=== PATIENT | male | born 1970 ===

== ENCOUNTER 2017-03-11 15:00 | Emergency (ER) | payer OTHER ==
[2017-03-11 15:27] VITALS: PULSE 72; RESP 18; TEMP 98.6; O2SAT 99
--- NOTE | 2017-03-11 15:35 | C.PDOC ---
History Of Present Illness A 47 y/o male presents to the ER c/o right lower back pain for 2 weeks. Patient notes the symptom as an aching pain that radiates down to the right buttock and thigh. Patient also wants urine checked, because of his frequent urination. Patient denies any dysuria, hematuria, discharge, fall, injury, numbness, weakness, abdominal pain, fever, chills, or any other complaints. Time Seen by Provider: 03/11/17 15:29 Chief Complaint (Nursing): Back Pain History Per: Patient History/Exam Limitations: no limitations Onset/Duration Of Symptoms: Days Current Symptoms Are (Timing): Still Present Quality Of Discomfort: Aching Severity: Mild Associated Symptoms: denies: New Weakness, New Numbness Recent travel outside of the [place]: No Additional History Per: Patient Past Medical History Reviewed: Historical Data, Nursing Documentation, Vital Signs Vital Signs: Last Vital Signs Temp 98.6 F 03/11/17 15:24 Pulse 72 03/11/17 15:24 Resp 18 03/11/17 15:24 BP 163/102 H 03/11/17 15:24 Pulse Ox 99 03/11/17 16:27 - Medical History PMH: HTN (sometimes, no meds) Surgical History: Appendectomy Family History: States: Unknown Family Hx - Social History Hx Alcohol Use: No Hx Substance Use: No - Immunization History Hx Tetanus Toxoid Vaccination: No Hx Influenza Vaccination: No Hx Pneumococcal Vaccination: No Review Of Systems Except As Marked, All Systems Reviewed And Found Negative. Constitutional: Negative for: Fever, Chills Gastrointestinal: Negative for: Abdominal Pain Genitourinary: Negative for: Dysuria, Hematuria Musculoskeletal: Positive for: Back Pain (Lower back pain), Leg Pain (Right buttock and thigh, radiation) Neurological: Negative for: Weakness, Numbness Physical Exam - Physical Exam Appears: Non-toxic, No Acute Distress Skin: Warm, Dry Head: Atraumatic, Normacephalic Eye(s): bilateral: Normal Inspection Neck: Normal ROM Cardiovascular: Rhythm Regular, No Murmur Respiratory: Normal Breath Sounds, No Rales, No Rhonchi, No Wheezing Gastrointestinal/Abdominal: Soft, No Tenderness Back: No CVA Tenderness, No Vertebral Tenderness, Paraspinal Tenderness Extremity: Normal ROM, No Tenderness, No Pedal Edema, No Deformity, No Swelling Neurological/Psych: Oriented x3, Normal Speech, Other (No focal deficit) Gait: Steady ED Course And Treatment O2 Sat by Pulse Oximetry: 99 (RA) Pulse Ox Interpretation: Normal Medical Decision Making Medical Decision Making: Impression: 47 y/o c/o lower back pain that radiates to the right buttock and thigh for 2 weeks Plans: -UA -Valium -Toradol -Reassess and disposition UA was negative. On reassessment, patient is resting comfortably, with improvement of back pain. Patient remains afebrile, with no bony tenderness, extremity numbness or weakness, or abdominal pain. Patient is ambulatory in the emergency department with no signs of discomfort. Patient was advised to follow up with physician/clinic in 1-2 days. Disposition Counseled Patient/Family Regarding: Need For Followup, Rx Given - Disposition Referrals: [facility] [Outside] Disposition: HOME/ ROUTINE Disposition Time: 16:35 Condition: STABLE Additional Instructions: [place] ibuprofeno cada 6-8 horas para el dolor y la inflamacin, tome con alimentos para no trastornar el estmago Flexeril es relajante muscular suave puede fabrizio hasta 3 veces al da, tenga en cuenta que puede causar somnolencia. No mezclar con alcohol Siga con briceno primaria o regrese a ED para cualquier empeoramiento de los sntomas Prescriptions: Cyclobenzaprine [Cyclobenzaprine HCl] 10 mg PO TID #21 tab Ibuprofen [Motrin] 600 mg PO Q8 #30 tab Instructions: Acute Low Back Pain (DC) Forms: Work Excuse Print Language: SLOVAK - POA Present On Arrival: None - Clinical Impression Clinical Impression: Sciatica - Scribe Statement The provider has reviewed the documentation as recorded by the Scribe Giovanna moore All medical record entries made by the Scribe were at my direction and personally dictated by me. I have reviewed the chart and agree that the record accurately reflects my personal performance of the history, physical exam, medical decision making, and the department course for this patient. I have also personally directed, reviewed, and agree with the discharge instructions and disposition.
[2017-03-11 16:06] LABS: RBC URINE 1 /hpf (0-3); URINE BILIRUBIN NEGATIVE (NEGATIVE); URINE BLOOD NEGATIVE (NEGATIVE); URINE COLOR Yellow (YELLOW); URINE GLUCOSE (UA) NORMAL (Normal); URINE KETONE NEGATIVE (NEGATIVE); URINE LEUKOCYTE ESTERASE NEG Leu/uL (Negative); URINE PROTEIN NEGATIVE (NEGATIVE); URINE UROBILINOGEN NORMAL mg/dL (0.2-1.0); WBC URINE < 1 /hpf (0-5)
[2017-03-11 17:20] VITALS: BP 168/92
== END 2017-03-11 16:36 | disposition home or self-care (01) ==
LOC: C.ER 15:00
DX: M54.30 Sciatica, unspecified side (principal)
CPT/HCPCS: 81001; 96372; 99284; J1885

== ENCOUNTER 2017-08-15 09:27 | Emergency (ER) | payer SELFPAY ==
[2017-08-15 09:32] VITALS: TEMP 97.8
[2017-08-15 10:05] VITALS: BP 142/75; PULSE 72; RESP 17; O2SAT 98
--- NOTE | 2017-08-15 15:22 | C.PDOC ---
History Of Present Illness 47 year old male presents to the ED with complaints of lower back pain and left hip pain for three days that is exacerbated by movement. 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 He denies saddle anesthesia, incontinence, dysuria, or hematuria. Chief Complaint (Nursing): Hip Pain History Per: Patient History/Exam Limitations: no limitations Onset/Duration Of Symptoms: Days (3 days ) Current Symptoms Are (Timing): Still Present Recent travel outside of the [place]: No Past Medical History Reviewed: Historical Data, Nursing Documentation, Vital Signs Vital Signs: Last Vital Signs Temp 97.8 F 08/15/17 09:30 Pulse 72 08/15/17 10:04 Resp 17 08/15/17 10:04 BP 142/75 08/15/17 10:04 Pulse Ox 98 08/15/17 16:40 - Medical History PMH: HTN (sometimes, no meds) Surgical History: Appendectomy Family History: States: Unknown Family Hx - Social History Hx Alcohol Use: No Hx Substance Use: No - Immunization History Hx Tetanus Toxoid Vaccination: No Hx Influenza Vaccination: No Hx Pneumococcal Vaccination: No Review Of Systems Constitutional: Negative for: Fever Genitourinary: Negative for: Dysuria, Incontinence, Hematuria Musculoskeletal: Positive for: Back Pain, Other (left hip pain ) Neurological: Negative for: Weakness, Numbness Physical Exam - Physical Exam Appears: Non-toxic, No Acute Distress Skin: Warm, Dry Head: Atraumatic, Normacephalic Eye(s): bilateral: Normal Inspection Neck: Normal ROM, No Midline Cervical Tenderness, No Paracervical Tenderness, Supple Cardiovascular: Rhythm Regular, No Murmur Respiratory: No Rales, No Rhonchi, No Wheezing, Other (clear to auscultation bilaterally ) Gastrointestinal/Abdominal: Soft, No Tenderness, No Distention, No Guarding, No Rebound Back: Other (left lumbar tenderness ) Extremity: Normal ROM (Full ROM of left hip ), Tenderness, Capillary Refill ( good capillary refill, less than two seconds ), No Deformity, No Swelling Neurological/Psych: Oriented x3 ED Course And Treatment O2 Sat by Pulse Oximetry: 98 (RA) Progress Note: Patient was given Motrin. Disposition - Disposition Referrals: [facility] [Outside] [facility] [Outside] Disposition: HOME/ ROUTINE Disposition Time: 09:50 Condition: GOOD Additional Instructions: Thank you for letting us take care of you today. Your provider was Dr. Gonzales. You were treated for hip and back pain. The emergency medical care you received today was directed at your acute symptoms. If you were prescribed any medication, please fill it and take as directed. It may take several days for your symptoms to resolve. Return to the Emergency Department if your symptoms worsen, do not improve, or if you have any other problems. Please contact your doctor or call one of the physicians/clinics you have been referred to that are listed on the Patient Visit Information form that is included in your discharge packet. Bring any paperwork you were given at discharge with you along with any medications you are taking to your follow up visit. Our treatment cannot replace ongoing medical care by a primary care provider (PCP) outside of the emergency department. Thank you for allowing the [facility] team to be part of your care today. Follow up with the clinic in 3-4 days for outpatient care. Pool por dejarnos atenderlo pelony. [place] proveedor fue el Dr. Gonzales. Usted fue tratado por dolor de cadera y espalda. La atencin mdica de emergencia que recibi hoy estaba dirigida a [place] sntomas agudos. Si le prescribieron algn medicamento, llnelo y tome segn las indicaciones. [place] sntomas pueden tardar varios lyons en resolverse. Regrese al Departamento de Emergencia si shiloh s ntomas empeoran, no mejoran o si tiene algn otro problema. Comunquese con [place] mdico o llame a estee de los mdicos / clnicas a los que crespo sido referido que figura en el formulario de Informacin de visita del paciente que se incluye en [place] paquete de swathi. Traiga todos los documentos que recibi al momento del swathi junto con los medicamentos que est tomando en [place] visita de seguimiento. Nuestro tratamiento no puede reemplazar la atencin mdica en curso por parte de un proveedor de atencin primaria (PCP) fuera del departamento de emergencias. Pool por permitir que el equipo de [facility] sea parte de [place] cuidado hoy. No un seguimiento con la clnica en 3-4 lyons para atencin ambulatoria. Prescriptions: Cyclobenzaprine [Cyclobenzaprine HCl] 10 mg PO Q8 PRN #20 tab PRN Reason: Muscle Spasm Ibuprofen [Motrin] 600 mg PO Q6 PRN #20 tab PRN Reason: Pain, Moderate (4-7) Forms: Gen Discharge Inst Turkmen Print Language: PERUVIAN - Clinical Impression Clinical Impression: Hip pain - Scribe Statement The provider has reviewed the documentation as recorded by the Scribe Ivanna Delacruz All medical record entries made by the Scribe were at my direction and personally dictated by me. I have reviewed the chart and agree that the record accurately reflects my personal performance of the history, physical exam, medical decision making, and the department course for this patient. I have also personally directed, reviewed, and agree with the discharge instructions and disposition.
== END 2017-08-15 10:20 | disposition home or self-care (01) ==
LOC: C.ER 09:27
DX: M25.552 Pain in left hip (principal)